=== PATIENT | female | born 1995 | race Caucasian/White ===

== ENCOUNTER 2021-06-11 19:33 | Emergency (ER) | payer OTHER ==
[~2021-06-11] VITALS: Ht 162.6 cm; Wt 86.2 kg
--- NOTE | 2021-06-11 19:50 | NUR ---
Dr. Stiles at bedside for MSE.
[2021-06-11] MEDS ORDERED: ONDANSETRON 4 MG/2 ML VIAL IV ONE (20:00)
[2021-06-11 20:13] LABS: HEMATOCRIT 41.9 % (31.2-41.9); MEAN CORPUSCULAR HEMOGLOBIN 30.1 uug (24.7-32.8); MEAN CORPUSCULAR VOLUME 86.2 fL (75.5-95.3); PLATELET COUNT (AUTO) 313 K/uL (179-408)
[2021-06-11 20:25] LABS: BILIRUBIN,DIRECT 0.1 mg/dL (0.0-0.2); BILIRUBIN,TOTAL 0.3 mg/dL (0.2-1.0); TOTAL PROTEIN, SERUM 7.7 g/dL (6.4-8.2)
[2021-06-11 20:26] LABS: ETHANOL < 3 MG/DL (0-0)
--- NOTE | 2021-06-11 20:30 | NUR ---
Pt out of ER for CT.
--- NOTE | 2021-06-11 20:50 | NUR ---
Pt back to ER from CT.
[2021-06-11] MEDS ORDERED: ONDA8TAB13 PO ×2 (21:05→21:51)
[2021-06-11] MEDS ORDERED: ONDANSETRON 4 MG/2 ML VIAL ONE (21:09)
[2021-06-11] MEDS ORDERED: ONDANSETRON ODT 4 MG TAB.RAPDIS ONE (21:11)
[2021-06-11] MEDS: IV NORMAL SALINE 1000 ML BAG IV ONE ×2 (21:12→21:43)
[2021-06-11] MEDS ORDERED: ONDANSETRON ODT 4 MG TAB.RAPDIS SL ONE (21:15)
--- NOTE | 2021-06-11 21:21 | NUR ---
Note undone in EDM - 06/11/21 at 2340 by VAUGHN Patient discharged to home in stable condition. Written and verbal after care instructions given. Patient verbalizes understanding of instructions. Stressed follow up or return to ER for worsening s/s. Patient out of ER with steady gait, no acute signs of distress, VSS, all belongings taken, provided with copies of lab and CT results, medically cleared by Dr. Stiles to go back to [facility].
[2021-06-11 23:41] VITALS: BP 145/100
--- NOTE | 2021-06-11 23:41 | NUR ---
Patient discharged to home in stable condition. Written and verbal after care instructions given. Patient verbalizes understanding of instructions. Stressed follow up or return to ER for worsening s/s. Patient out of ER with steady gait, no acute signs of distress, VSS, all belongings taken, provided with copies of lab and CT results, medically cleared by Dr. Stiles to go back to [facility].
== END 2021-06-11 23:42 | disposition home or self-care (01) ==
LOC: ER 19:39
DX: S06.0X1A Concussion with loss of consciousness of 30 minutes or less, initial encounter (principal); R40.2362 Coma scale, best motor response, obeys commands, at arrival to emergency department; R40.2252 Coma scale, best verbal response, oriented, at arrival to emergency department; R40.2142 Coma scale, eyes open, spontaneous, at arrival to emergency department; W18.30XA Fall on same level, unspecified, initial encounter; Y92.89 Other specified places as the place of occurrence of the external cause; F06.8 Other specified mental disorders due to known physiological condition; F31.9 Bipolar disorder, unspecified; F43.10 Post-traumatic stress disorder, unspecified; Z87.820 Personal history of traumatic brain injury; Z91.040 Latex allergy status; Z88.0 Allergy status to penicillin; Z91.018 Allergy to other foods
CPT/HCPCS: 36415; 70450; 85025; 93005; A4663; G0480; J2405; J7040; Q0162